=== PATIENT | male | born 1950 | race Caucasian/White ===

== ENCOUNTER → 2017-11-14 | Outpatient (CLI) | payer MEDICARE, BC ==
--- NOTE | 2017-11-14 17:16 | CONS ---
CONSULTATION REASON FOR CONSULTATION: Sleep apnea. This is a 67-year-old male patient who is coming in for further advice regarding LONI treatment. The patient has been noted by his to have increased snoring and apneas. Based on that, the patient was referred for home sleep study testing by his primary care physician, Dr. Hill. This was completed in January of 2017, and back then the patient weighed around 235/236 pounds. The sleep study showed an AHI of 9 with mild nocturnal oxygen desaturation. For that reason, the patient is coming in to see if there is any need for further followup or treatment regarding this diagnosis. Since then, the patient has lost around 14 to 15 pounds and currently is down to 221 pounds. soft snore. Denies having any major hypersomnia or sleepiness during the day. His Steward score is at 6. He denies waking up tired and sleepy during the day. He does not have any problems with concentration, memory or attention span. He does not fall asleep during day-to-day activities. He is not worrying much about his sleep in general. His Steward score is 6. No difficulty with memory or concentration. No difficulty with irritability or depression. No difficulties with anxiety. He goes to bed around 9 to 11 p.m. and wakes up somewhere between 6 and 8 a.m. in the morning. PAST MEDICAL HISTORY: 1. LONI discussed above. 2. Obesity. 3. Hypertension. 4. Hypothyroidism. PAST SURGICAL HISTORY: 1. Appendectomy. 2. Bowel surgery for an obstruction/volvulus. 3. Parathyroid resection. 4. Foot surgery for a shattered heel bone. DRUG ALLERGIES: NOT KNOWN. OUTPATIENT MEDICATION LIST: 1. Synthroid 100 mcg p.o. daily. 2. Losartan 100 mg p.o. daily. SOCIAL HISTORY: He is an ex-smoker. He drinks 1-2 beers on a daily basis. No history of IV drugs. FAMILY HISTORY: Negative for sleep apnea. REVIEW OF SYSTEMS: Twelve-point review of systems was done. Positive findings were all mentioned above in the history of present illness. Of significance is the weight loss noted. No angina. No chest pain. No shortness of breath. No seizure activity. No chronic aches and pains in the joints. No acid reflux. No GI bleed. No restlessness in the lower extremities. No sleep paralysis, hallucinations or cataplexy. PHYSICAL EXAMINATION: HIS CURRENT VITALS: BP is 98/64, pulse 68, respiration 16, temperature 98.1, saturation 95% on room air. Weight is 221. Height is 5 feet 7 inches, BMI 34.6, neck size 16-1/2 inches. GENERAL APPEARANCE: Calm, comfortable. No acute distress. Head is atraumatic, normocephalic. NECK: Mallampati class 3. There is no goiter or neck masses. LUNGS: Clear to auscultation. Heart sounds are regular rate and rhythm. Normal S1, S2. No S3, S4. No murmurs. ABDOMEN: Soft, nontender. No organomegaly. EXTREMITIES: No edema. No cyanosis or clubbing. NEUROLOGIC: Alert and oriented x3. There is no focal neurological deficit. PSYCHIATRIC: Negative for anxiety or depression. IMPRESSION: 1. Obstructive sleep apnea, mild in severity, with an AHI of 9. No associated hypersomnia. No associated sleep fragmentation. No associated significant nocturnal oxygen desaturation. Note that the patient had this home sleep study back in January of 2017, and since then he has lost a considerable amount of weight. At this point in time he has mild snoring. He has no major hypersomnia or sleepiness. Steward score is 6. 2. Obesity with a body mass index of 34.6. 3. Hypertension. 4. Hypothyroidism. PLAN: 1. Encourage further weight loss. 2. Follow-up home sleep study in February of 2018. This will be needed to re-evaluate the presence and severity of obstructive sleep apnea in light of his weight loss and decide if further treatment is needed. No need for immediate CPAP therapy at this point. The patient was encouraged to lose weight, sleep in a sidewise body position, implement good sleep hygiene measures, and repeat home sleep study in 3 months' time and decide if treatment is needed. MMODL / IJN: [id number] /
== END | disposition home or self-care (01) ==
LOC: SLEEP 13:29
PROVIDERS: ATTEND Internal Medicine Critical Care Medicine
DX: G47.33 Obstructive sleep apnea (adult) (pediatric) (principal); E66.9 Obesity, unspecified; I10 Essential (primary) hypertension; E03.9 Hypothyroidism, unspecified; Z98.890 Other specified postprocedural states; Z68.34 Body mass index [BMI] 34.0-34.9, adult; Z79.899 Other long term (current) drug therapy; Z87.891 Personal history of nicotine dependence
CPT/HCPCS: 99211

== ENCOUNTER → 2018-01-31 | Outpatient (CLI) | payer MEDICARE, BC ==
--- NOTE | 2018-01-31 15:50 | US ---
EXAMINATION TYPE: US duplex aorta DATE OF EXAM: 01/31/2018 COMPARISON: NONE CLINICAL HISTORY: History of smoking Z87.891. Family history of AAA EXAM MEASUREMENTS: Abdominal Aorta: Proximal: obscured by overlying midline bowel gas Mid: 2.2 x 2.2cm Distal: 2.1 x 2.0cm Right Iliac: 1.3 x 1.4cm Left Iliac: 1.2 x 1.3cm Visualized portions appear wnl, no AAA seen at this time, proximal aorta obscured by overlying midlin e bowel gas. IMPRESSION: 1. Normal abdominal aorta.
== END | disposition home or self-care (01) ==
LOC: RADUSWWP 07:26
PROVIDERS: ATTEND Family Medicine
DX: Z09 Encounter for follow-up examination after completed treatment for conditions other than malignant neoplasm (principal); Z86.79 Personal history of other diseases of the circulatory system; Z87.891 Personal history of nicotine dependence
CPT/HCPCS: 93979

== ENCOUNTER → 2018-03-20 | Outpatient (CLI) | payer MEDICARE, BC ==
--- NOTE | 2018-03-20 14:57 | PN ---
PROGRESS NOTE A 67-year-old male patient with known history of obstructive sleep apnea coming in for a followup. The patient underwent a home sleep study that was conducted on 02/23/2018. In comparison to the previous study from 02/23/2017, there has been significant worsening in the patient's obstructive sleep apnea. Based on the home sleep study results, the patient has multiple apneas and hypopneas and the resulting apnea-hypopnea index was 40.9, worse in the supine body position. This patient also spent approximately 20% of sleep time with a pulse ox of 90% with a minimum pulse ox of 75%. Gooding score is at 6. On today's evaluation, we discussed the results and we discussed the treatment options. The patient is not interested in coming here to the lab to undergo a CPAP titration. The alternative will be in APAP and he is open to this suggestion. He is feeling a bit tired and sleepy; however, he is not excessively somnolent and sleepy at this point in time. No history of any chest pain. No angina, no palpitations. No shortness of breath. No history of stroke or CVA. REVIEW OF SYSTEMS: A 12-point review of system was done. Positive findings are mentioned above history of present illness. VITALS: Temperature is 98.7, pulse is 88, respirations 16, temperature 98.0, saturation is 94% on room air. Gooding score is a 5-6 and BP is 135/71. GENERAL APPEARANCE: Calm, comfortable. Head is atraumatic, normocephalic. NECK: Supple. Mallampati class IV. There is no goiter or neck masses. LUNGS: Clear to auscultation. HEART: Sounds regular rate and rhythm. Normal S1, S2. No S3. No murmurs. ABDOMEN: Soft, nontender. No organomegaly. EXTREMITIES: No edema. No cyanosis or clubbing. IMPRESSION: 1. Severe obstructive sleep apnea with an apnea-hypopnea index of 40.9. There has been concern with worsening in the patient's obstructive sleep apnea over the past 1 year where the apnea-hypopnea index was 9 and currently is up to 40.9. 2. Severe nocturnal oxygen desaturation. 3. There is hypersomnia. Gooding Score is at 6. 4. Hypertension. 5. Hypothyroidism. PLAN: Will offer an APAP treatment for this patient. The patient was given an APAP with a minimum pressure of 5, maximum pressure of 20 with a C-flex of 3. Will offer him the mask of choice. Encourage weight loss. Implement good sleep hygiene measures and see me back in 30 to 90 days after initiating his APAP treatment. JACKY / ISHAAN: [id number] /
== END | disposition home or self-care (01) ==
LOC: SLEEP 13:01
PROVIDERS: ATTEND Internal Medicine Critical Care Medicine
DX: G47.33 Obstructive sleep apnea (adult) (pediatric) (principal); I10 Essential (primary) hypertension; E03.9 Hypothyroidism, unspecified

== ENCOUNTER → 2018-06-05 | Outpatient (CLI) | payer MEDICARE, BC ==
--- NOTE | 2018-06-05 14:13 | P.PN ---
Subjective Progress Note Date: 06/05/18 I'm seeing this patient today for a compliancy follow-up at the sleep Center. 67-year-old male patient was diagnosed having severe LONI with an AHI of 40, worsening supine body position. The diagnosis was confirmed by a home sleep study that was done on 02/23/2018. The patient was given an APAP machine on today's coming in for a compliancy check. He is looking very well. She is improving with the treatment. His sleep quality is improved and is awake and up refreshed and alert during the day. No major hypersomnia and sleepiness. His weight is stable at 232 pounds. He is utilizing his CPAP every night and he has no specific complaints. He is currently in a APAP mode with a minimum pressure of 5 and a maximum of 20 and the patient is averaging around 8.2 hours of CPAP use per night. His CPAP use for more than 4 hours as 100% and the patient's AHI while in treatment is down to 0.8 with a defect at 15 L per minute. The patient utilizing a airfit P10 pillows. He is able to function well and he doesn't fall asleep while driving or performing other daily activities. Objective - Vital Signs Vital signs: His current blood pressure is 146/88 pulse is 65 respirations 16 and weight is 232 temperature is 98.3 upper scores at 7 and saturation 95% on room air. - Exam The patient appeared well nourished and normally developed. Vital signs as documented. Head exam is unremarkable. No scleral icterus or corneal arcus noted. Neck is without jugular venous distension, thyromegaly, or carotid bruits. Carotid upstrokes are brisk bilaterally. Lungs are clear to auscultation and percussion. Cardiac exam reveals the PMI to be normally sized and situated. Rhythm is regular. First and second heart sounds normal. No murmurs, rubs or gallops. Abdominal exam reveals normal bowel sounds, no masses , no organomegaly and no aortic enlargement. Extremities are nonedematous and both femoral and pedal pulses are normal.Examination of the skin revealed no evidence of significant rashes, suspicious appearing nevi or other concerning lesions. Neurologically awake and alert and there is no focal neurological deficit Assessment and Plan Plan: #1 Severe obstructive sleep apnea with an AHI of 40, currently on APAP with successful clinical response and compliancy. # 2 nocturnal oxygen saturation recovered with CPAP therapy #3 hypersomnia, current upper scores at 7 #4 obesity , current weight is 232 pounds Plan Check the patient's CPAP machine. The patient is utilizing his CPAP machine every night and the patient is compliant and meets insurance guidelines. The patient is clinically benefiting from the treatment. We'll keep the same mask interface. The patient will be encouraged to lose weight. In mental sleep hygiene measures. Treatment is successful and the patient will see her back in a years time, earlier if needed.
== END ==
LOC: SLEEP 13:18
PROVIDERS: ATTEND Internal Medicine Critical Care Medicine
DX: G47.33 Obstructive sleep apnea (adult) (pediatric) (principal); E66.9 Obesity, unspecified; Z99.89 Dependence on other enabling machines and devices

== ENCOUNTER → 2020-05-26 | Outpatient (CLI) | payer MEDICARE, BC ==
--- NOTE | 2020-05-26 15:06 | PN ---
PROGRESS NOTE Ji is doing well, coming in for a biannual check regarding obstructive sleep apnea. The patient has an AHI of 40, consistent with severe disease and the patient is currently on APAP and this is a ResMed unit at a minimum pressure of 5, maximum pressure of 22, utilizing an AirFit P10 large size nasal pillows. Doing well. Very compliant with APAP. Sleepiness is improved. The patient's [place] score is down to 7. Based on a 30-day compliancy, the patient has been utilizing his machine every night and his CPAP use for more than 4 hours being utilized at 100%. Average pressure is around 8.9, average number of hours of sleep is at 8.7 hours per night. His AHI while on treatment is down to 0.6 and the treatment is extremely successful. No new complaints otherwise for now. PHYSICAL EXAMINATION: VITAL SIGNS: His BP is 141/87, pulse 68, respirations 16, temperature 98.1, saturation 96% on room air. Height is 5 feet 7 inches. Weight is 228 and BMI 35.7. GENERAL APPEARANCE: Calm, comfortable. HEAD: Atraumatic, normocephalic. NECK: Supple. No JVD. No goiter or neck masses. No thrush. LUNGS: Diminished otherwise clear. HEART: Sounds are regular rate and rhythm. Normal S1, S2. No S3, no S4. No murmurs. ABDOMEN: Soft, nontender. No organomegaly. EXTREMITIES: No edema. No cyanosis or clubbing. NEUROLOGIC: Awake and alert. There is no focal neurological deficit. IMPRESSION: 1. Obstructive sleep apnea, severe AHI of 40, currently on APAP with successful treatment. 2. Hypersomnia, recovered. 3. Hypertension. PLAN: 1. Encourage weight loss. 2. Continue APAP therapy at same level of pressure which is a minimum of 5 maximum of 20. 3. Refill the AirFit P10 large size nasal pillows. 4. ClimateLine to be refilled. 5. Continue using the CPAP. No issues for now. No major side effects or comorbidities. 6. See me back in a few years time in followup. MMODL / IJN: [id number] /
== END | disposition home or self-care (01) ==
LOC: SLEEP 13:25
PROVIDERS: ATTEND Internal Medicine Critical Care Medicine
DX: G47.33 Obstructive sleep apnea (adult) (pediatric) (principal); I10 Essential (primary) hypertension; Z99.89 Dependence on other enabling machines and devices

== ENCOUNTER → 2021-10-12 | Outpatient (CLI) | payer MEDICARE, BC ==
--- NOTE | 2021-10-12 16:13 | P.PN ---
Subjective Progress Note Date: 10/12/21 This is a 68-year-old male patient with known history of obstructive sleep apnea coming in for an annual checkup regarding that the patient's LONI. The patient has no specific evaluation. He has a APAP machine which is set at a pressure minimum of 5 and a maximum of 20. The patient has a ResMed 10 CPAP unit. His treatment is been extreme a successful and over the past 30 days, the patient has utilize his machine on average of 7.8 hours per night and average pressure delivered by the machine is around 10 cm of water. AHI is down to 0.6 while on treatment. He is awake and refreshed and alert during the day. No hypersomnia and sleepiness. No morning headaches. No substance abuse. No alcoholism. No anxiety or depression. No nightmares. No sleepwalking or sleep talking. No other report parasomnias. The patient has hypertension and hyperlipidemia as comorbidities and both are treated and he remains on a combination of losartan and Synthroid. No recent weight gain and the weight is around 230 which is essentially comparable to last year. Objective - Exam BP is 134/87 with a pulse of 71 and a respiration of 16 with a temperature 97.8 and a saturation is 96% on room air oxygen. [place] score is at 7. BMI 36. Weight is 230 pounds. The patient appeared well nourished and normally developed. Vital signs as documented. Head exam is unremarkable. No scleral icterus or corneal arcus noted. Neck is without jugular venous distension, thyromegaly, or carotid bruits. Carotid upstrokes are brisk bilaterally. Lungs are clear to auscultation and percussion. Cardiac exam reveals the PMI to be normally sized and situated. Rhythm is regular. First and second heart sounds normal. No murmurs, rubs or gallops. Abdominal exam reveals normal bowel sounds, no masses, no organomegaly and no aortic enlargement. Extremities are nonedematous and both femoral and pedal pulses are normal.Examination of the skin revealed no evidence of significant rashes, suspicious appearing nevi or other concerning lesions.Neurologically, the patient is awake and alert and the patient does not have any focal neurological deficit. Cranial nerves are essentially intact. Assessment and Plan Plan: Obstructive sleep apnea, severe with an AHI of 40 at baseline, currently successfully treated with an APAP unit Hypersomnia, improved [place] score is at 7 Obesity with a body mass index of 36, weight is stable Hypothyroidism Hypertension Plan Continue CPAP therapy the same pressures and the patient will be kept APAP mode pressure minimum of 5 and a maximum of 20 Keep the patient on Airfit P10 and large size nasal pillows Encourage weight loss Maintain adequate sleep hygiene Maintain regular sleep schedule No new onset comorbidities or any cardiovascular events See back in a year's time
== END ==
LOC: SLEEP 15:36
PROVIDERS: ATTEND Internal Medicine Critical Care Medicine
DX: G47.33 Obstructive sleep apnea (adult) (pediatric) (principal); E66.9 Obesity, unspecified; E03.9 Hypothyroidism, unspecified; I10 Essential (primary) hypertension; Z68.36 Body mass index [BMI] 36.0-36.9, adult; Z79.890 Hormone replacement therapy; Z79.899 Other long term (current) drug therapy; Z87.891 Personal history of nicotine dependence

== ENCOUNTER → 2022-10-04 | Outpatient (CLI) | payer MEDICARE, BC ==
--- NOTE | 2022-10-04 16:42 | P.PN ---
Progress Note - Text Progress Note Date: 10/04/22 71-year-old male patient with known history of obstructive sleep apnea coming in for an annual checkup regarding his LONI. The patient is known to have severe LONI with an AHI of 40 and the patient continues to receive successful APAP therapy pressures of 5/20 cm of water. He has no specific complaints. His treatment has been very successful. Based on the compliance data that has been collected on the machine over the past 30 days, the patient has been averaging 8 hours of CPAP use per night. His usage of the machine for more than 4 hours is at 100%. His leak is at 7 L/m and his AHI is down to 0.8. He has developed atrial fibrillation and he was started on anticoagulation with Eliquis. His cardiac rhythm is back to sinus. His weight has remained stable. He has been only 5 pounds since his last evaluation. He has no other specific complaints. He is alert and awake during the day. No hypersomnia or sleepiness to treatment remains successful. BP is 137/85 with a pulse of 62 and a respiration of 20 with a temperature of 97.5. Weight is 235 and a patient's [place] score is at 8 The patient appeared well nourished and normally developed. Vital signs as documented. Head exam is unremarkable. No scleral icterus or corneal arcus noted. Neck is without jugular venous distension, thyromegaly, or carotid bruits. Carotid upstrokes are brisk bilaterally. Lungs are clear to auscultation and percussion. Cardiac exam reveals the PMI to be normally sized and situated. Rhythm is regular. First and second heart sounds normal. No murmurs, rubs or gallops. Abdominal exam reveals normal bowel sounds, no masses, no organomegaly and no aortic enlargement. Extremities are nonedematous and both femoral and pedal pulses are normal.Examination of the skin revealed no evidence of significant rashes, suspicious appearing nevi or other concerning lesions.Neurologically, the patient is awake and alert and the patient does not have any focal neurological deficit. Cranial nerves are essentially intact. Impression Severe LONI with an AHI undergoing successful APAP therapy with a pressures of 5/20 cm of water Paroxysmal A. fib, current rhythm is sinus and the patient anticoagulants Hypersomnia, improved Hypertension Hypothyroidism Plan Continue CPAP therapy the same pressure setting. Keep the same mask interface and the patient is using the airfit p10 nasal pillows. Encourage weight loss. Maintain regular sleep schedule and sleep hygiene measures. Refills will be given and the patient will see him back in a year's time and follow-up.
== END ==
LOC: SLEEP 14:50
PROVIDERS: ATTEND Internal Medicine Critical Care Medicine
DX: G47.33 Obstructive sleep apnea (adult) (pediatric) (principal); I48.0 Paroxysmal atrial fibrillation; Z79.01 Long term (current) use of anticoagulants; I10 Essential (primary) hypertension; E03.9 Hypothyroidism, unspecified; Z99.89 Dependence on other enabling machines and devices; Z87.891 Personal history of nicotine dependence
CPT/HCPCS: 99212